=== PATIENT | male | born 1990 | race Caucasian/White ===

== ENCOUNTER 2017-09-05 10:17 | Emergency (ER) | payer MEDICAID, OTHER ==
[~2017-09-05] VITALS: Ht 190.5 cm; Wt 78.2 kg
[2017-09-05] MEDS ORDERED: CYCL10TA PO (11:08)
[2017-09-05] MEDS ORDERED: KEFL500C17 PO (11:08)
[2017-09-05 11:33] VITALS: BP 128/68
== END 2017-09-05 11:34 | disposition home or self-care (01) ==
LOC: M ED 10:17
DX: J01.00 Acute maxillary sinusitis, unspecified (principal); M54.9 Dorsalgia, unspecified

== ENCOUNTER → 2019-04-02 | Outpatient (CLI) | payer OTHER ==
[~2019-04-02] MED LIST: CYCL10TA PO; KEFL500C17 PO
[2019-04-02 13:05] LABS: CHLAMYDIA DNA AMPLIFICATION NEGATIVE (NEGATIVE); GC DNA AMPLIFICATION NEGATIVE (NEGATIVE)
--- NOTE | 2019-04-02 13:05 | REP ---
Clinical: Scoliosis. Comparison: 10/20/2014. Findings: Dextroconvex scoliosis through the thoracic spine of approximately 20 degrees as measured from the superior endplate of T4 to the superior endplate of T12 centered at approximately T8 is similar to prior examination. Levoconvex scoliosis through the lumbar spine of approximately 27 degrees as measured from the superior endplate of T12 to the superior endplate of L4 centered at L1-2. Impression: Scoliosis as described above. Electronically Signed by Romero Hargrove MD 04/02/2019 11:37 A
[2019-04-03 10:56] LABS: HEPATITIS C VIRUS ABY INDEX 0.1 INDEX (<0.8); HIV 1&2 SCREEN CENTAUR NEGATIVE (NEGATIVE)
== END ==
LOC: M LAB 10:52
PROVIDERS: ATTEND Family Medicine
DX: Z20.2 Contact with and (suspected) exposure to infections with a predominantly sexual mode of transmission (principal); M41.24 Other idiopathic scoliosis, thoracic region; M41.25 Other idiopathic scoliosis, thoracolumbar region; M41.26 Other idiopathic scoliosis, lumbar region

== ENCOUNTER → 2021-09-07 | Outpatient (CLI) | payer OTHER ==
[~2021-09-07] MED LIST changes: +CYCL-707 PO; -CYCL10TA PO
== END ==
LOC: M WUC 15:50
PROVIDERS: ATTEND Nurse Practitioner Family
DX: S62.356A Nondisplaced fracture of shaft of fifth metacarpal bone, right hand, initial encounter for closed fracture (principal); X58.XXXA Exposure to other specified factors, initial encounter; Y92.9 Unspecified place or not applicable

== ENCOUNTER 2022-04-12 09:18 | Emergency (ER) | payer OTHER ==
[~2022-04-12] VITALS: Ht 190.5 cm; Wt 102.1 kg
[2022-04-12] MEDS ORDERED: PERI12LIQ (09:27)
[2022-04-12] MEDS ORDERED: PENI500T (09:27)
[2022-04-12] MEDS ORDERED: KETOROLAC 30 MG/ML 1ML VIAL IV ONE ×2 (10:00→13:20)
[2022-04-12] MEDS ORDERED: CLINDAMYCIN 900 MG in IV 1 EA IV ONE (10:00)
[2022-04-12] MEDS ORDERED: NS 1,000 ML IV ONE (10:00)
[2022-04-12 10:27] LABS: BASO # 0.1 10^3/uL (0.0-0.2); BASO % 0.4 % (0.0-1.0); EOS # 0.1 10^3/uL (0.0-0.5); EOS % 0.9 % (0.0-3.0); HEMATOCRIT 44.8 % (42.0-52.0); HEMOGLOBIN 15.1 g/dl (13.5-17.5); LYMPH # 1.2 10^3/uL (1.5-5.0); MEAN CORPUSCULAR HEMOGLOBIN 31.1 pg (27.0-33.0); MEAN CORPUSCULAR HGB CONC 33.7 g/dl (32.0-36.5); MEAN CORPUSCULAR VOLUME 92.2 fl (80.0-96.0); MONO # 0.8 10^3/uL (0.0-0.8); MONO % 6.6 % (2.0-8.0); NEUTROPHILS # 9.9 10^3/uL (1.5-8.5); NEUTROPHILS % 81.6 % (36.0-66.0); PLATELET COUNT, AUTOMATED 266 10^3/uL (150-450); RED BLOOD COUNT 4.86 10^6/uL (4.30-6.10); WHITE BLOOD COUNT 12.1 10^3/uL (4.0-10.0)
[2022-04-12 10:58] LABS: ERYTHROCYTE SEDIMENTATION RATE 5 mm/hr (0-15)
[2022-04-12 10:59] LABS: BLOOD UREA NITROGEN 11 MG/DL (7-18); C REACTIVE PROTEIN QUANTITATIV 2.94 MG/DL (0.00-0.30); CALCIUM LEVEL 8.7 MG/DL (8.5-10.1); CARBON DIOXIDE LEVEL 29 MEQ/L (21-32); CHLORIDE LEVEL 104 MEQ/L (98-107); CREATININE FOR GFR 0.89 MG/DL (0.70-1.30); GLOMERULAR FILTRATION RATE > 60.0 (>60); GLUCOSE, FASTING 102 MG/DL (70-100); POTASSIUM SERUM 5.1 MEQ/L (3.5-5.1); SODIUM LEVEL 136 MEQ/L (136-145)
[2022-04-12] MEDS ORDERED: ISOVUE-370 76% 100ML VIAL As Ordered ONE (11:17)
[2022-04-12] MEDS ORDERED: dexameTHASONE 20MG/5ML VIAL (J1100 PER 1MG) IV ONE (13:20)
[2022-04-12] MEDS ORDERED: AMPICILLIN SOD/SULBACTAM SOD 3 GM in D5W MINI-BAG PLUS 100 ML IV ONE (14:40)
[2022-04-12] MEDS ORDERED: AMOX875T2 PO (15:12)
[2022-04-12] MEDS ORDERED: HYDR-3713 PO (15:12)
[2022-04-12 15:21] VITALS: BP 133/91
== END 2022-04-12 16:00 | disposition home or self-care (01) ==
LOC: M ED 09:18
DX: K04.7 Periapical abscess without sinus (principal); F17.200 Nicotine dependence, unspecified, uncomplicated; Z79.899 Other long term (current) drug therapy
CPT/HCPCS: 70491; 80048; 85025; 85652; 86140; 96365; 96366; 96375; 99284; J0295; J1100; J1885; Q9967

== ENCOUNTER → 2024-07-16 | Outpatient (CLI) | payer BC ==
[~2024-07-16] MED LIST changes: +AMOX875T2 PO; +HYDR-3713 PO; +PENI500T; +PERI12LIQ
== END ==
LOC: M WUC 15:22
PROVIDERS: ATTEND Nurse Practitioner Family
DX: M25.541 Pain in joints of right hand (principal)